=== PATIENT | male | born 2000 | race Caucasian/White ===

== ENCOUNTER 2024-07-19 09:48 | Emergency (ER) | payer OTHER ==
[2024-07-19 10:16] LABS: AMPHETAMINES SCREEN, URINE NEGATIVE (NEGATIVE); BARBITURATE SCREEN,URINE NEGATIVE (NEGATIVE); BENZODIAZEPINES SCREEN,URINE NEGATIVE (NEGATIVE); METHADONE SCREEN, URINE NEGATIVE (NEGATIVE); METHAMPHETAMINES SCREEN, URINE NEGATIVE (NEGATIVE); OXYCODONE SCREEN,URINE NEGATIVE (NEGATIVE); PROPOXYPHENE SCREEN,URINE NEGATIVE (NEGATIVE); THC SCREEN,URINE 50 NG/ML PRESUMPTIVE POSITIVE (NEGATIVE)
[2024-07-19] MEDS: LORazepam 1 MG Tab PO ONE ×3 (10:50→17:52)
[2024-07-19] MEDS: LORazepam 2 MG/ML SDV IVPUSH ONE (10:51)
[2024-07-19 14:45] LABS: BASOPHILS ABSOLUTE AUTO 0.07 K/uL (0.00-0.10); BASOPHILS PERCENT AUTO 0.8 % (0.1-1.3); EOSINOPHILS ABSOLUTE AUTO 0.08 K/uL (0.00-0.40); HEMATOCRIT 46.6 % (38.4-49.7); IMMATURE GRAN PERCENT AUTO 0.2 % (0.0-0.7); LYMPHOCYTES ABSOLUTE AUTO 2.42 K/uL (0.8-3.3); LYMPHOCYTES PERCENT AUTO 28.7 % (11.4-47.7); MEAN CORPUSCULAR HEMOGLOBIN 31.6 pg (31.6-35.5); MEAN CORPUSCULAR HGB CONC 34.3 g/dL (31.6-35.5); MEAN CORPUSCULAR VOLUME 91.9 fL (81.4-99.0); MONOCYTES ABSOLUTE AUTO 0.58 K/uL (0.20-0.90); MONOCYTES PERCENT AUTO 6.9 % (3.3-12.6); NEUTROPHILS ABSOLUTE AUTO 5.25 K/uL (1.0-7.6); NEUTROPHILS PERCENT AUTO 62.4 % (40.0-78.1); PLATELET COUNT,PLT 250 K/uL (130-375); RED BLOOD CELL COUNT 5.07 M/uL (4.14-5.76); WHITE BLOOD CELL COUNT,WBC 8.4 K/uL (3.2-11.0)
[2024-07-19 14:46] LABS: IMMATURE GRAN ABSOLUTE AUTO 0.02 K/uL (0.00-0.23)
[2024-07-19 15:10] LABS: A/G RATIO 1.2 (1.2-2.2); ALANINE AMINOTRANSFERASE,ALT 43 U/L (12-78); ALBUMIN 4.1 g/dL (3.4-5.0); ALKALINE PHOSPHATASE 69 U/L (46-116); ANION GAP 8.9 mmol/L (5.0-14.0); ASPARTATE AMNIOTRANSFERASE,AST 20 U/L (15-37); BILIRUBIN TOTAL 0.5 mg/dL (0.2-1.0); BLOOD UREA NITROGEN,BUN 11 mg/dL (7-18); CALCIUM 9.3 mg/dL (8.5-10.1); CARBON DIOXIDE,CO2 27 mmol/L (21-32); CHLORIDE,CL 104 mmol/L (100-108); CREATININE 0.9 mg/dL (0.8-1.3); EST CRCL DRUG DOSING (CG) 125.47 mL/min; ESTIMATED GFR 122 mL/min (>60); GLUCOSE RANDOM 121 mg/dL (74-106); POTASSIUM,K 3.9 mmol/L (3.6-5.2); PROTEIN TOTAL,TP 7.4 g/dL (6.4-8.2); SODIUM,NA 140 mmol/L (140-148); T4 FREE 0.94 ng/dL (0.76-1.46)
== END 2024-07-20 09:51 ==
LOC: JP.ED 09:48
DX: F32.A Depression, unspecified (principal); R44.3 Hallucinations, unspecified; F17.210 Nicotine dependence, cigarettes, uncomplicated
CPT/HCPCS: 36415; 70450; 80053; 80143; 80179; 80305; 80307; 84439; 85025; 87635; 99285; A9270; U0002